=== PATIENT | female | born 2000 | race Caucasian/White ===

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

== ENCOUNTER 2022-01-22 23:55 | Emergency (ER) | payer OTHER ==
[2022-01-23 00:19] VITALS: BP 116/69; PULSE 75; RESP 19; TEMP 98
[2022-01-23] MEDS ORDERED: LIDOCAINE 1% INJ 10MG/ML (5 ML VIAL-PF) SQ ONE (00:29)
[2022-01-23] MEDS ORDERED: DIPH,PERTUS(ACELL)TETVAC-LF 0.5 ML VIAL IM ONE (00:30)
--- NOTE | 2022-01-23 00:31 | ED ---
Wound/Laceration HPI - General Chief Complaint: Wound/Laceration Stated Complaint: fishing hook stuck in hand Time Seen by Provider: 01/23/22 00:24 Source: patient, RN notes reviewed Mode of arrival: ambulatory - History of Present Illness Initial Comments: Patient presents to the emergency After accidentally being caught with a fishing lure in the end of her left index finger. No other injuries. Last tetanus unknown. No headache, no fever or chills, no changes in vision or hearing, no sore throat or difficulty with speech, no neck pain, no chest pain or shortness of breath, no abdominal pain, no nausea or vomiting, no changes in urination or bowel movements, no numbness or tingling,no skin rashes or lesions. - Related Data Home Medications Medication Instructions Recorded Confirmed Dexmethylphenidate HCl [Focalin Xr] 15 mg PO DAILY 03/17/21 03/17/21 Previous Rx's Medication Instructions Recorded Cephalexin [Keflex] 500 mg PO Q6HR #28 cap 01/23/22 Allergies Allergy/AdvReac Type Severity Reaction Status Date / Time No Known Allergies Allergy Verified 01/23/22 00:19 Review of Systems ROS Statement: Those systems with pertinent positive or pertinent negative responses have been documented in the HPI. ROS Other: All systems not noted in ROS Statement are negative. Past Medical History Past Medical History: No Reported History Additional Past Medical History / Comment(s): migraines History of Any Multi-Drug Resistant Organisms: None Reported Past Surgical History: No Surgical Hx Reported Past Psychological History: No Psychological Hx Reported Smoking Status: Never smoker Past Alcohol Use History: None Reported Past Drug Use History: None Reported General Exam General appearance: alert, in no apparent distress Head exam: Present: atraumatic, normocephalic, normal inspection Eye exam: Present: normal appearance, PERRL, EOMI. Absent: scleral icterus, conjunctival injection, periorbital swelling ENT exam: Present: normal exam, mucous membranes moist Neck exam: Present: normal inspection. Absent: tenderness, meningismus, lymphadenopathy Respiratory exam: Present: normal lung sounds bilaterally. Absent: respiratory distress, wheezes, rales, rhonchi, stridor Cardiovascular Exam: Present: regular rate, normal rhythm, normal heart sounds. Absent: systolic murmur, diastolic murmur, rubs, gallop, clicks GI/Abdominal exam: Present: soft, normal bowel sounds. Absent: distended, tenderness, guarding, rebound, rigid Extremities exam: Present: full ROM, tenderness (Some tenderness with a fishing lure is caught in the distal left index finger no other injuries. No evidence of infectious process.), normal capillary refill. Absent: pedal edema, joint swelling, calf tenderness Back exam: Present: normal inspection Neurological exam: Present: alert, oriented X3, CN II-XII intact Psychiatric exam: Present: normal affect, normal mood Skin exam: Present: warm, dry, intact, normal color. Absent: rash Course Vital Signs 01/23/22 00:15 Temperature 98 F Pulse Rate 75 Respiratory 19 Rate Blood Pressure 116/69 O2 Sat by Pulse 98 Oximetry Medical Decision Making - Medical Decision Making Isolated fishhook injury to left index finger. No evidence of infection. No evidence of joint space involvement. Disposition Clinical Impression: [place] injury to finger Narrative: [place] soft tissue injury/foreign body to left index finger Disposition: HOME SELF-CARE Condition: Good Instructions (If sedation given, give patient instructions): Soft Tissue Foreign Body (ED) Additional Instructions: Follow-up with your regular physician as directed. Return to the ER immediately if any symptoms worsen, new symptoms arise, or any other problems develop. Follow-up with your regular physician as needed Soak the puncture wound and warm soap and water for 10-15 minutes a time 4 times per day. Keep covered with Neosporin or Triple Antibiotic ointment and a Band- Aid in between. Take the antibiotics if any signs or symptoms of infection start. Is patient prescribed a controlled substance at d/c from ED?: No Referrals: None,Stated [Primary Care Provider] - 1-2 days Time of Disposition: 01:00
[2022-01-23] MEDS ORDERED: BACITRACIN OINT 1 EACH PACKET TOPICAL ONE (00:59)
== END 2022-01-23 01:12 | disposition home or self-care (01) ==
LOC: EC 23:55
DX: S60.451A Superficial foreign body of left index finger, initial encounter (principal); W45.8XXA Other foreign body or object entering through skin, initial encounter; Z23 Encounter for immunization
CPT/HCPCS: 99283 ×2; 90471; 90715; J2001; 64450; 96372; 99284